=== PATIENT | female | born 1960 | race Caucasian/White ===

== ENCOUNTER 2021-11-18 14:05 | Emergency (ER) | payer SELFPAY ==
[2021-11-18] MEDS: Metoclopramide 10 MG/2 ML SDV IVPUSH ONE (14:25)
[2021-11-18] MEDS: Sodium Chloride 0.9% 1,000 ML IV ONE (14:30)
[2021-11-18] MEDS: diphenhydrAMINE 50 MG/ML SDV IVPUSH ONE (14:30)
[2021-11-18 15:03] LABS: BLOOD UREA NITROGEN,BUN 16 mg/dL (7.0-18.0); CARBON DIOXIDE,CO2 27.4 mmol/L (21.0-32.0); CHLORIDE,CL 104 mmol/L (98-107); GLUCOSE RANDOM 122 mg/dL (74-106); POTASSIUM,K 3.4 mmol/L (3.5-5.1); SODIUM,NA 141 mmol/L (136-145)
[2021-11-18 15:29] LABS: CORONAVIRUS COVID-19 NAA NEGATIVE (NEGATIVE); INFLUENZA A NAA NEGATIVE (NEGATIVE); INFLUENZA B NAA NEGATIVE (NEGATIVE)
== END 2021-11-18 16:23 | disposition home or self-care (01) ==
LOC: MW.ED 14:05
DX: R55 Syncope and collapse (principal); R11.0 Nausea; Z88.2 Allergy status to sulfonamides; Z20.822 Contact with and (suspected) exposure to COVID-19
CPT/HCPCS: 0240U; 36415; 71045; 80053; 83735; 84484; 85025; 86140; 93005; 96374; 96375; 99285; J1200; J2765; J7030; 93010; 99283